=== PATIENT | female | born 1980 | race Caucasian/White ===

== ENCOUNTER 2021-06-24 01:52 | Day surgery (SDC) | payer OTHER, SELFPAY ==
[2021-06-09 13:23] VITALS: BMI 22.5
[2021-06-24 09:31] VITALS: BP 100/71; PULSE 71; RESP 16; TEMP 36.9; O2SAT 100; BMI 22.2
[2021-06-24] MEDS: LACTATED RINGERS 1,000 ML 150 ML IV CONT (09:44)
--- NOTE | 2021-06-24 10:00 | WPDANESEPPF ---
Anes - Initial Pre Proc Eval Procedure: Operation Date: 06/24/21 10:15 Proposed Procedures p Colonoscopy - Jorge Bahena MD Date/Time: 06/24/21 10:00 Surgeon: Jorge Bahnea MD Pre Op Diagnosis: melena Patient Data Age: 41 Gender: F Height: 1.65 m Weight: 60.6 kg Last Vital Signs Temp 98.4 F 06/24/21 09:31 Pulse 71 06/24/21 09:31 Resp 16 06/24/21 09:31 BP 100/71 06/24/21 09:31 Pulse Ox 100 06/24/21 09:31 Allergies Allergy/AdvReac Type Severity Reaction Status Date / Time tetracycline Allergy Unknown Unknown Verified 06/24/21 09:28 Home Medications Medication Instructions Recorded Confirmed Type norgestimate-ethinyl estradiol 1 tablet PO DAILY 06/02/20 06/24/21 History 0.18 mg/0.215mg/0.25mg-35 mcg(28)tablet Patient hx anesthesia problems: none Family hx anesthesia problems: none [facility] Past Medical History Medical History (Updated 06/24/21 @ 09:45 by Romero Sotomayor MD) Healthy adult Social History Social History Smoking status: Former smoker Tobacco type: cigarettes Alcohol intake: current Alcohol use details: socially Substance use: never Substance use type: does not use Living arrangements: with family Spiritual care concerns: No Anes - Eval Final PreProcedure Day of Procedure 06/24/21 10:00 Patient weight: normal Heart: regular rate and rhythm Lungs: clear to auscultation Airway: Mallampati scale class II Neurological: alert and oriented Last oral intake: >/= 8 hours ASA classification: II Emergent: no Anesthetic plan: proceed Anesthesia type and monitoring: general GIVS and standard monitoring Informed Consent: The patient's anesthetic plan and its attendant risks and benefits were discussed with the patient/family/POA. Questions were solicited and answers provided to the satisfaction of the patient/family/POA.
--- NOTE | 2021-06-24 10:08 | P.HP_ITS ---
History of Present Illness History of Present Illness Consent: Risks, benefits, and alternatives have been discussed and questions answered. Patient agrees to proceed with procedure. Chief complaint: melena Narrative: Yumiko Galvan is a 41 year old female who has been seen blood in her stools intermittently for the past 8 months. She does not find herself straining but occasionally she may not have a bowel movement for couple days. She uses stool softeners. Review of Systems Review of Systems: All systems reviewed & are unremarkable except as noted in HPI and below PMFSH Past Medical History Medical History Healthy adult Social History Social History Smoking status: Former smoker Tobacco type: cigarettes Alcohol intake: current Alcohol use details: socially Substance use: never Substance use type: does not use Living arrangements: with family Spiritual care concerns: No Meds Home Medications and Allergies Home Medications Medication Instructions Recorded Confirmed Type norgestimate-ethinyl estradiol 1 tablet PO DAILY 06/02/20 06/24/21 History 0.18 mg/0.215mg/0.25mg-35 mcg(28)tablet Allergies Allergy/AdvReac Type Severity Reaction Status Date / Time tetracycline Allergy Unknown Unknown Verified 06/24/21 09:28 Vital Signs Vital Signs - 24 hr 06/24/21 09:31 Temperature 36.9 C Pulse Rate 71 Respiratory Rate 16 Blood Pressure 100/71 Pulse Oximetry 100 Exam 2 Resp: Auscultation: clear to auscultation bilaterally Cardio: Rate: regular rate Rhythm: regular rhythm GI: GI Palp: Yes Soft to palpation and No Tenderness to palpation present (GI) Assessment and Plan Assessment and plan (1) Blood in stool: Code(s): K92.1 - Melena Status: Acute Assessment and Plan: Colonoscopy with possible biopsy or polypectomy or cautery or injection of substances.
[2021-06-24 10:54] LABS: Beta HCG Quantitative < 2.39 mIU/ML
[2021-06-24 11:20] VITALS: BP 83/40; PULSE 75; RESP 18; O2SAT 98
[2021-06-24 11:30] VITALS: BP 85/46; PULSE 60; RESP 15; O2SAT 100
[2021-06-24 11:40] VITALS: BP 93/48; PULSE 61; RESP 21; O2SAT 99
== END 2021-06-24 11:49 | disposition home or self-care (01) ==
PROVIDERS: Anesthesiology; PCP Family Medicine; Visit Provider Internal Medicine Gastroenterology
PROC: 0DJD8ZZ Inspection of Lower Intestinal Tract, Via Natural or Artificial Opening Endoscopic (ICD-10-PCS; CPT 45378; principal; 2021-06-24 10:15)
DX: K92.1 Melena (principal); K64.8 Other hemorrhoids; Z87.891 Personal history of nicotine dependence
CPT/HCPCS: 45378; 36415; 84702; J2704; J7120

== ENCOUNTER → 2021-10-20 07:35 | Outpatient (CLI) | payer OTHER, SELFPAY ==
[2021-10-20 20:41] LABS: SARS-CoV-2 RNA PCR Negative
== END ==
PROVIDERS: PCP Family Medicine; Visit Provider Family Medicine
DX: Z20.822 Contact with and (suspected) exposure to COVID-19 (principal)
CPT/HCPCS: C9803; U0003; U0005

== ENCOUNTER 2022-01-02 15:36 | Emergency (ER) | payer OTHER, SELFPAY ==
--- NOTE | ~2022-01-02 | CT_ITS ---
EXAMINATION: CT brain wo con DATE: 01/02/2022 16:35 INDICATION: Seizure. TECHNIQUE: Computed tomography (CT) of the head was performed without intravenous contrast. The mA wa s adjusted according to patient size. Iterative reconstruction technique was employed. The dose-lengt h product was 605.33 mGy-cm. COMPARISON: None FINDINGS: There is no intracranial hemorrhage, acute infarction, or abnormal intracranial mass lesion . The ventricles are normal in size. There is mucosal thickening in the paranasal sinuses. The orbits are normal. The mastoid air cells are normal. IMPRESSION: 1. Normal brain. Reviewed, dictated and finalized at location A. IMPRESSION: 1. Normal brain.
--- NOTE | ~2022-01-02 | XR_ITS ---
EXAMINATION: XR chest 2V EXAM DATE: 01/02/2022 16:40 INDICATION: Cough. TECHNIQUE: Frontal and lateral projections of the chest obtained and reviewed. There is no prior vivek dy for comparison. FINDINGS: The lungs are clear. There are no pleural effusions. The cardiomediastinal silhouette is within normal limits. There is no pneumothorax suspected. The bones and soft tissues are unremarkab le. IMPRESSION: Normal chest x-ray exam. Reviewed, dictated and finalized at location B. IMPRESSION: Normal chest x-ray exam.
[2022-01-02 15:37] VITALS: BP 152/89; PULSE 91; RESP 22; O2SAT 99
--- NOTE | 2022-01-02 16:20 | ECG_ITS ---
Measurements Intervals [place] Rate: 63 P: 65 [place]: 163 QRS: 41 QRSD: 91 T: 49 QT: 431 QTc: 442 Interpretive Statements SINUS RHYTHM NORMAL ECG NO PREVIOUS ECG AVAILABLE FOR COMPARISON Electronically Signed On 01-03-2022 17:00:43 CDT by Sunday Bird M.D.
--- NOTE | 2022-01-02 16:21 | ED.SEIZURE ---
HPI - Seizure General Chief Complaint: Seizure Stated Complaint: SZ Time Seen by Provider: 01/02/22 16:01 Source: patient Mode of arrival: EMS Limitations: no limitations History of Present Illness HPI Narrative: Patient is a 41-year-old female complaining of a seizure episode at home. According to who witnessed the episode, patient had a tonic-clonic seizure that lasted for approximately 1 to 2 minutes accompanied by postictal confusion lasted for approximately 15 to 20 minutes, started prior to arrival. Patient states that she was doing work on her desk at home when she had a seizure. Patient states that she has been asymptomatic prior to the episode. Patient denies any prior episodes in the past. Patient denies any headache, dizziness, speech or visual disturbance, focal weakness or numbness, unsteady gait, neck pain or stiffness, chest pain, shortness of breath, abdominal pain, nausea, vomiting, fever or chills. Patient does state that her sister has epilepsy ever since she was an . Related Data Home Medications Medication Instructions Recorded Confirmed norgestimate-ethinyl estradiol 1 tablet PO DAILY 06/02/20 06/24/21 0.18 mg/0.215mg/0.25mg-35 mcg(28)tablet Allergies Allergy/AdvReac Type Severity Reaction Status Date / Time tetracycline Allergy Unknown Unknown Verified 06/24/21 09:28 Review of Systems Review of Systems: All systems reviewed & are unremarkable except as noted in HPI and below Constitutional: Constitutional: Denies body ache(s), Denies chills, Denies excessive sweating, Denies fatigue, Denies fever(s), Denies headache(s), Denies lethargy, Denies malaise, Denies weakness and Denies weight loss Eyes: Eyes: Denies blurry vision, Denies change in vision and Denies loss of vision ENT: Denies dizziness, Denies ear discharge, Denies headache(s), Denies lip swelling, Denies epistaxis, Denies nasal congestion, Denies neck pain, Denies throat swelling and Denies tongue swelling Cardiovascular: Cardiovascular: Denies chest pain, Denies chest pain at rest, Denies chest pain with activity, Denies diaphoresis, Denies rapid heart rate, Denies edema, Denies irregular heart rhythm, Denies lightheadedness, Denies palpitations, Denies dyspnea and Denies dyspnea on exertion Respiratory: Respiratory: Denies chest congestion, Denies cough, Denies hemoptysis, Denies dyspnea and Denies dyspnea on exertion Gastrointestinal: Gastrointestinal: Denies abdominal pain, Denies melena, Denies hematochezia, Denies diarrhea, Denies nausea, Denies vomiting and Denies hematemesis Musculoskeletal: Musculoskeletal: Denies abnormal gait, Denies deformity, Denies joint swelling, Denies limited range of motion, Denies neck pain and Denies numbness Neurologic: Denies Abnormal speech present, Denies abnormal gait, Denies confusion, Denies dizziness, Denies headache(s), Denies focal weakness, Denies loss of vision, Denies numbness, Denies Other visual disturbances, Denies Sensory deficit (Neuro) and Denies weakness Psychiatric: Psychiatric: Denies confusion, Denies depression, Denies auditory hallucinations, Denies homicidal ideation and Denies suicidal ideation Endocrine: Endocrine: Denies cold intolerance, Denies excessive sweating, Denies fatigue, Denies heat intolerance and Denies palpitations Hematologic/Lymphatic: Hematologic/Lymphatic: Denies easy bleeding and Denies easy bruising Allergic/Immunologic: Allergic/Immunologic: Denies lip swelling, Denies throat swelling and Denies tongue swelling PMFSH Past Medical History Medical History Healthy adult Social History Social History Smoking status: Former smoker Tobacco type: cigarettes Alcohol intake: current Alcohol use details: socially Substance use: never Substance use type: does not use Spiritual care concerns: No Exam Const: Gene
[2022-01-02] MEDS: LACTATED RINGERS 1,000 ML 999 ML IV CONT (16:30)
[2022-01-02 16:34] LABS: Basophils Absolute Auto 0.1 K/mm3 (0.0-0.1); Basophils Percent Auto 0.7 % (0.2-1.2); Eosinophils Absolute Auto 0.3 K/mm3 (0-0.3); Eosinophils Percent Auto 2.9 % (0-4.4); Hematocrit 37.7 % (37.0-47.0); Hemoglobin 13.1 g/dL (12.0-15.0); Immature Granulocyte Absolute 0.02 K/mm3 (0.00-0.031); Immature Granulocyte Percent A 0.2 % (0-0.5); Lymphocytes Absolute Auto 1.92 K/mm3 (0.9-3.2); Lymphocytes Percent Auto 21.1 % (18.3-44.2); Mean Corpuscular HGB Conc 34.7 g/dl (32-36); Mean Corpuscular Hemoglobin 31.3 pg (26-34); Mean Platelet Volume 9.4 fl (7.4-10.4); Monocytes Absolute Auto 0.5 K/mm3 (0.1-0.6); Monocytes Percent Auto 5.6 % (2.6-8.5); Neutrophils Absolute Auto 6.4 K/mm3 (1.3-6.7); Neutrophils Percent Auto 69.5 % (45.5-73.1); Platelet Count Result 365 k/mm3 (150-375); Red Blood Count 4.19 M/mm3 (4.2-5.4); White Blood Count 9.1 K/mm3 (4.5-10.0)
[2022-01-02 16:41] LABS: Add Urine Microscopic? YES; Appearance Urine Cloudy (Clear); Bilirubin Urine Negative (Negative); Blood Urine Negative (Negative); Color Urine Yellow (Yellow); Glucose Urine UA Negative (Negative); Ketones Urine Negative (Negative); Leukocyte Esterase Ur Negative LEU/UL (Negative); Mucus Urine Rare /lpf; Nitrate Urine Negative (Negative); Protein Urine Negative (Negative); Specific Grav Ur 1.023 (1.001-1.035); Squamous Epithelial Cell Urine Occasional /hpf (Few); Urobilinogen Urine Negative mg/dL (<2.0); WBC Urine 0-3 /hpf
[2022-01-02 16:46] LABS: Alanine Aminotransferase 11 U/L (4-35); Albumin Level 4.1 g/dL (3.5-5.1); Alkaline Phosphatase 51 U/L (38-126); Anion Gap 5 mmol/L (8-16); Aspartate Amino Transferase 23 U/L (14-36); Bilirubin,Total 0.5 mg/dL (0.2-1.3); Blood Urea Nitrogen 19 mg/dL (7-17); Calcium 8.3 mg/dL (8.4-10.2); Carbon Dioxide 28 mmol/L (22-30); Chloride 103 mmol/L (98-107); Estimated CRCL calculation 81 ml/min; Estimated Glomerular Filt Rate > 60; Glucose 91 mg/dL (65-110); Potassium 4.3 mmol/L (3.4-5.0); Sodium 136 mmol/L (137-145)
[2022-01-02 16:55] LABS: Troponin I < 0.012 ng/mL (0.000-0.034)
--- NOTE | 2022-01-02 17:50 | WPDCN ---
Assessment and Plan Assessment and plan (1) New onset seizure: Code(s): R56.9 - Unspecified convulsions Status: Acute Assessment and Plan: I was called to perhaps admit the patient to the hospital for further workup. Many times with first-time seizures the patient can be discharged home from the ER with neurology follow-up but unfortunately we do not have a neurologist senior functional analyst today or tomorrow to discuss her case. I suggested that the ED physician could consult with a neurologist at an outside facility and I also offered her admission to the hospital for brain MRI and EEG, with the understanding that she would not be able to see a neurologist here. She wishes to be discharged home from the ER and will follow-up as an outpatient. She was instructed not to drive until she follows up with Neurology as per ER disposition and she needs to follow-up with her primary care provider as soon as possible. HPI Data of Consult Date/Time: 01/02/22 17:50 Primary Care Provider: Sunday Medina MD Consult Narrative Narrative: This is a pleasant, previously healthy 41-year-old female presented to the emergency department via EMS from home for evaluation after a seizure. Over the last couple of weeks she has had a subtle right frontal headache but nothing significant and she has otherwise been feeling in her usual state of health. Today she was a bit more tired than usual and she had some generalized muscle aches which she attributed to jogging 1.5 miles yesterday and doing pushups and sit-ups, which she has not done for several months. She works from home and today while sitting in front of the computer she felt lightheaded and she was concerned that she may lose consciousness so she lay on the floor until the symptoms passed. With further questioning it sounds as though she has had issues with near syncopal and syncopal episodes over the years and this is not unusual for her. When she was feeling better she got back to work however her symptoms returned not long thereafter and she once again lay down on the floor as she felt like she was going to pass out. That is last thing she remembers prior to waking up in the ambulance. Her also works from home and he was in the basement at the time. He heard a thud and grunting noises coming from upstairs and when he came to investigate she was found to be having what sounds like a tonic clonic seizure. On arrival to triage she was postictal and repetitive in her questioning. She has no history of seizures but apparently has a sister with epilepsy. She has not been sleeping well the last couple of nights however she would not consider herself to be sleep deprived. She has not been started on any new medication and has not taken any pocf-lhd-zkrutcz medications for several days, the last being an tndh-zri-xkmczby allergy pill. She drinks perhaps 1 beer in evening, sometimes up to 3 beers on the weekends. Brain CT on arrival to the emergency department was unremarkable. At the time my evaluation she is still feeling a bit ?foggy? but she is alert and oriented and has no specific complaints. Review of Systems Review of Systems: Twelve systems were reviewed. She denies fever, chills, and sweats. She does have some mild allergy symptoms this time year but nothing significant. No recent cold or flu symptoms. She denies vertigo, focal weakness, paresthesias, auditory and visual changes, facial droop, dysphagia, and dysarthria. No chest pain or shortness of breath. No nausea, vomiting, or diarrhea. No dysuria. Except as documented, all other systems were reviewed and are negative. [facility] Past Medical History Medical History Healthy adult Surgical History Surgical History No history of previous surgery Family History Family History (Updated 01/02/22 @ 23:48 by Lula Reno PA-C) Sibling E
[2022-01-02 19:27] VITALS: BP 124/78; PULSE 78; RESP 16; TEMP 36.8; O2SAT 100
== END 2022-01-02 19:29 | disposition home or self-care (01) ==
PROVIDERS: Emergency Provider Emergency Medicine; PCP Family Medicine
DX: R56.9 Unspecified convulsions (principal); Z87.891 Personal history of nicotine dependence
CPT/HCPCS: 36415; 70450; 71046; 80053; 81001; 81025; 84484; 85025; 93005; 96360; 96361; 99284; J7120

== ENCOUNTER 2024-12-19 08:45 | Outpatient (RCR) | payer OTHER, SELFPAY ==
--- NOTE | 2024-11-14 16:07 | OTOPEVAL1 ---
Assessment and note entered by Fly Serrano, OTR/L, CHT OT Evaluation Information 11/14/24 Assessment Status Evaluation ICD-10 Condition Codes (OT) Pain in right hand M79.641 Subjective Information Patient reports right thumb and elbow pain for 6- 12 months. She reports the pain has become more constant and overall worse. 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 She reports if she cleans her house her thumb will be screaming at her by the end of it. She has tried over the counter thumb braces on both thumbs (her left has the same symptoms just not as bad). Reported Pain Level Pain Score 2: Self Report Additional Pain Score Comments (R) thumb is a constant 1-2/10 at rest. This number sharply increases with repeated thumb/hand use. Assessment OT Clinical Summary Patient referred to OT with right hand pain. 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 Patient presents with pain at the base of her thumb, pain with pinching, gripping, and cylindrical grasp on drinks. Functionally she uses her thumb with IP hyperextension and MCP flexion, which places too much force of the CMC joint. Yudelka's was negative. No paresthesia. Today a custom hand based orthosis was fabricated to support and rest the CMC joint. Initiated education on joint protection techniques. Continued follow up indicated for HEP progression, continued joint protection techniques, modalities , manual therapy, and therapeutic exercise to facilitate reduced pain and improved functional hand use for ADLs. Plan of Care Interventions Therapeutic Exercise,Manual Therapy,Therapeutic Activities,Paraffin OT Services Indicated Yes Treatment Frequency and 1x/week for 4 visits Duration These treatments will address the objective and functional deficits as defined above. The patient will be advanced safely and appropriately in order for the patient to progress towards his/her prior level of function. Additional exercises will be introduced and as well as a comprehensive home exercise program upon discharge, if needed, ?to ensure carryover of functional gains achieved in the clinic. This treatment plan has been reviewed and agreement upon by the patient.
--- NOTE | 2024-11-17 11:29 | PCOTNOTE ---
Patient called today to inform the therapist that her dog ate her hand spica splint. Discussed wearing the over the counter splint she has until our next appointment.
--- NOTE | 2024-12-19 09:33 | OTOPDC ---
Assessment and note entered by Fly Serrano, OTR/L, CHT OT D/C Summary 12/19/24 Assessment Status Discharge ICD-10 Condition Codes (OT) Pain in right hand M79.641 Subjective Information Patient reports progress with her thumb pain. She reports in the last week she had 2 days of no pain . She reports she is more aware of her thumb use and mechanics during ADLs. She reports at rest her pain has subsided to 0/10 to 1/10. This has improved from a constant 1/10 to 2/10. She reports her thumb pain isn't as bad after cleaning her house, not needing to take pain meds afterwards. She reports good compliance with wearing her thumb spica orthotic throughout the day. Reported Pain Level Pain Score 0: Self Report Additional Pain Score Comments Patient has progressed to no pain at rest, sometimes this increases to 1/10. Assessment OT Clinical Summary Patient referred to OT with right hand pain. 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 A custom hand based thumb spica was fabricated for her to wear during the day/with activity. She has been compliant with this as well as with using improved thumb mechanics during ADLs. She has progressed to experiencing less pain with hand use. She has progressed to gentle strengthening. At this time she is independent with all materials. D/C OT with HEP. Plan of Care OT Services Indicated No
== END 2024-12-19 10:39 | disposition home or self-care (01) ==
LOC: ANHOT 08:45
PROVIDERS: PCP Family Medicine; Visit Provider Student in an Organized Health Care Education/Training Program
DX: M79.644 Pain in right finger(s) (principal)
CPT/HCPCS: 97018; 97110; 97140; 97166; L3913; L3921